=== PATIENT | female | born 1930 ===

== ENCOUNTER → 2017-12-20 | Outpatient (CLI) | payer OTHER ==
[~2017-12-20] MED LIST: ADULT ASPIRIN81 MG; NEURONTIN800 MG; SYNTHROID50 MCG; ULTRACET PO
== END | disposition home or self-care (01) ==
LOC: NUCLEAR 09:40
DX: R42 Dizziness and giddiness (principal); E78.2 Mixed hyperlipidemia; I67.89 Other cerebrovascular disease

== ENCOUNTER 2018-04-09 10:57 | Inpatient (IN) | payer OTHER ==
[~2018-04-09] VITALS: Ht 162.6 cm; Wt 68.0 kg
== END 2018-04-12 13:32 | disposition home or self-care (01) | DRG 153 ==
LOC: ER 10:57 → MEDJ 04-10 11:21
PROVIDERS: ADMIT Internal Medicine Cardiovascular Disease
DX: J11.1 Influenza due to unidentified influenza virus with other respiratory manifestations (principal); K52.89 Other specified noninfective gastroenteritis and colitis; E86.0 Dehydration

== ENCOUNTER 2018-06-07 10:34 | Outpatient (CLI) | payer OTHER | END 2018-06-07 14:54 | disposition home or self-care (01) | LOC: MRI 10:34 | DX: I67.89 Other cerebrovascular disease (principal) | CPT/HCPCS: 70551 ==